=== PATIENT | male | born 1940 | race Caucasian/White ===

== ENCOUNTER 2016-12-28 10:22 | Outpatient (CLI) | payer MEDICARE ==
--- NOTE | 2016-12-28 13:19 | MRI ---
BRAIN MRI WITH AND WITHOUT CONTRAST: 12/28/2016 HISTORY: Left-sided hearing loss. COMPARISON: None. TECHNIQUE: Multiplanar, multisequence MR imaging of the brain is obtained with and without contrast, using an i nternal auditory canal protocol. FINDINGS: The diffusion weighted imaging demonstrates no evidence for acute infarction. The regional bone marrow signal intensity appears within normal limits. The imaged paranasal sinuses/mastoid air cells appear within normal limits. Arterial flow voids at the axial level of the skull base appear grossly unremarkable on the T2-weighted imaging. Axial, thin section, T2 weighted imaging demonstrates no abnormal signal intensity in the region of the cerebellopontine angle, internal auditory canal, cochlea, vestibule, or semicircular canal, on e ither side. Thin section post contrast imaging demonstrates no abnormal enhancement in the region of the cerebel lopontine angle, internal auditory canal, cochlea, vestibule, or semicircular canals on either side. There is no abnormal enhancement within the brain parenchyma. IMPRESSION: Grossly unremarkable contrast enhanced brain MRI, utilizing the internal auditory canal protocol. POS: [facility]
[2016-12-28] MEDS ORDERED: Gadobenate Dimeglumine 529 MG/1 ML (20ML VIAL) ONE (16:39)
== END 2016-12-28 10:23 | disposition home or self-care (01) ==
LOC: MRI 10:22
PROVIDERS: ATTEND Specialist
DX: H91.20 Sudden idiopathic hearing loss, unspecified ear (principal)
CPT/HCPCS: 70553; A9579